=== PATIENT | female | born 1955 | race Caucasian/White ===

== ENCOUNTER → 2019-10-15 | Outpatient (CLI) | payer MEDICARE ==
--- NOTE | 2019-10-15 10:29 | Diagnostic Imaging Report ---
CLINICAL INDICATIONS: Patient with low TSH. COMPARISONS: None. FINDINGS: THYROID NODULES: There is a 1.2 cm x 0.7 cm x 0.7 cm hyperechoic nodule, with a smaller central hypoechoic area within it, which is located in the inferior pole the left thyroid lobe. THYROID GLAND: Besides the thyroid nodule, the thyroid gland parenchyma is heterogeneous. The thyroid gland otherwise has normal size and shape. The right lobe measures 4.8 cm x 2.0 cm x 1.7 cm and the left lobe measures 3.3 cm x 1.8 cm x 1.0 cm in their three dimensions. ISTHMUS: The isthmus is unremarkable and measures 3 mm in thickness. IMPRESSION: 1: There is a 1.2 cm nodule involving the inferior pole of the left thyroid lobe. 2: There is nonspecific heterogeneous appearance of the thyroid gland parenchyma. Dictated by: Dictated on workstation # [id number]
== END ==
LOC: RAD 08:25
PROVIDERS: ATTEND Nurse Practitioner Family
DX: E04.1 Nontoxic single thyroid nodule (principal); R94.6 Abnormal results of thyroid function studies
CPT/HCPCS: 76536

== ENCOUNTER → 2019-11-27 | Outpatient (CLI) | payer MEDICARE ==
--- NOTE | 2019-11-28 14:08 | Diagnostic Imaging Report ---
INDICATION: Left lobe thyroid nodule. COMPARISON: Correlation is made with prior thyroid ultrasound from 10/15/2019. TECHNIQUE: Patient was administered 193 uCi of I-123 orally and a 4-hour and 24-hour thyroid uptake study was performed. In addition, thyroid scan was performed. FINDINGS: 4-hour uptake is 4.8%. 24-hour uptake is 16.9%. Normal 24-hour uptake is 10-30%. Thyroid scan demonstrates fairly homogeneous uptake of activity by both lobes of the thyroid. No definite hot or cold nodules are seen. IMPRESSION: Unremarkable thyroid uptake and scan. Dictated by: Dictated on workstation # [id number]
== END ==
LOC: CARD 11:32
PROVIDERS: ATTEND Otolaryngology Otolaryngology/Facial Plastic Surgery
DX: E04.1 Nontoxic single thyroid nodule (principal)
CPT/HCPCS: 78014

== ENCOUNTER → 2019-12-06 | Outpatient (CLI) | payer MEDICARE | LOC: CARD 12:02 | PROVIDERS: ATTEND Internal Medicine Cardiovascular Disease | DX: E78.2 Mixed hyperlipidemia (principal); I10 Essential (primary) hypertension | CPT/HCPCS: 93306 ==

== ENCOUNTER 2019-12-10 21:00 | Outpatient (CLI) | payer MEDICARE | END 2019-12-11 06:29 | disposition home or self-care (01) | LOC: SLEEP 21:00 | PROVIDERS: ATTEND Internal Medicine Cardiovascular Disease | DX: G47.33 Obstructive sleep apnea (adult) (pediatric) (principal); G47.00 Insomnia, unspecified; I10 Essential (primary) hypertension | CPT/HCPCS: 95810 ==

== ENCOUNTER → 2021-03-18 | Outpatient (CLI) | payer MEDICARE ==
--- NOTE | 2021-03-18 10:55 | Diagnostic Imaging Report ---
INDICATION: Right chest and rib pain PA and lateral views of the chest are obtained. COMPARISON: None FINDINGS: Heart size and pulmonary vascularity are within normal limits, and the lungs are clear, bilaterally. There are surgical clips in the right axilla and breast. IMPRESSION: Unremarkable chest. Dictated by: Dictated on workstation # [id number]
--- NOTE | 2021-03-18 11:51 | Diagnostic Imaging Report ---
INDICATION: Right-sided posterior lower rib pain. TIME OF EXAM: 10:48 AM. FINDINGS: Multiple views of the right-sided ribs were obtained. The ribs appear to be intact. No displaced fracture is seen. The lungs are clear. There is no effusion or pneumothorax. Surgical clips in the right axilla are noted. IMPRESSION: No acute abnormality is detected. Dictated by: Dictated on workstation # [id number]
== END ==
LOC: RAD 10:05
PROVIDERS: ATTEND Nurse Practitioner Family
DX: R07.81 Pleurodynia (principal); R07.9 Chest pain, unspecified
CPT/HCPCS: 71046; 71100

== ENCOUNTER → 2021-07-16 | Outpatient (CLI) | payer MEDICARE ==
--- NOTE | 2021-07-16 13:51 | Diagnostic Imaging Report ---
PROCEDURE: US Thyroid. TECHNIQUE: Multiple real-time grayscale images were obtained of the thyroid in various projections. INDICATION: Left thyroid nodule. COMPARISON: July 11, 2020, and October 15, 2019. FINDINGS: The right lobe of the thyroid gland measures 5.1 x 2.1 x 1.5 cm. It maintains a homogeneous echotexture without discrete nodule. The left lobe of the thyroid gland measures 4.6 x 1.6 x 1.4 cm. There is again seen an ovoid solid nodule which is mildly hyperechoic with central hypoechogenicity. This measures 1.3 x 0.9 x 0.9 cm, which has not significantly changed from the prior exams. No new left thyroid nodule. The isthmus is unremarkable. IMPRESSION: Stable 1.3 cm TI-RADS 2 nodule within the left thyroid lobe. No new thyroid nodule identified. Dictated by: Dictated on workstation # [id number]
== END ==
LOC: RAD FS 12:34
PROVIDERS: ATTEND Otolaryngology Otolaryngology/Facial Plastic Surgery
DX: E04.1 Nontoxic single thyroid nodule (principal)
CPT/HCPCS: 76536

== ENCOUNTER → 2022-09-07 | Outpatient (CLI) | payer MEDICARE ==
--- NOTE | 2022-09-07 17:07 | Diagnostic Imaging Report ---
PROCEDURE: US Thyroid. TECHNIQUE: Multiple real-time grayscale images were obtained of the thyroid in various projections. INDICATION: Thyroid nodule. Comparison with 07/16/2021. FINDINGS: The right lobe measures 4.8 x 1.9 x 1.4 cm. Left lobe measures 3.8 x 1.7 x 1.5 cm. The well-circumscribed oval nodule with anechoic center and isoechoic peripheral soft tissue rim is again noted and has not changed in appearance. This measures approximately 1.3 x 0.8 x 0.8 cm. IMPRESSION: Mixed solid and cystic nodule well-circumscribed without calcification. This is considered mildly suspicious. Continued ultrasound followup recommended. Dictated by: Dictated on workstation # [id number]
== END ==
LOC: RAD FS 10:55
PROVIDERS: ATTEND Otolaryngology Otolaryngology/Facial Plastic Surgery
DX: E04.1 Nontoxic single thyroid nodule (principal)
CPT/HCPCS: 36415; 76536; 84443

== ENCOUNTER → 2023-09-14 | Outpatient (CLI) | payer MEDICARE ==
--- NOTE | 2023-09-14 17:17 | Diagnostic Imaging Report ---
EXAMINATION: US Thyroid. TECHNIQUE: Multiple real-time grayscale images were obtained of the thyroid in various projections. HISTORY: Thyroid nodule COMPARISON: 09/07/2022 FINDINGS: The right lobe of the thyroid measures 4.5 x 1.6 x 1.5 cm. The left lobe of the thyroid measures 3.8 x 1.7 x 1.4 cm. The isthmus measures 0.4 cm. The size and echogenicity of the thyroid is normal. There is a 1.3 x 1.0 x 0.9 cm solid and hyperechoic nodule in the left thyroid. It is not significantly changed from 2019.. IMPRESSION: 1. The left-sided thyroid nodule is not significantly changed from 2019. No further followup needed. Dictated by: Dictated on workstation # [id number]
== END ==
LOC: RAD 10:11
PROVIDERS: ATTEND Otolaryngology Otolaryngology/Facial Plastic Surgery
DX: E04.1 Nontoxic single thyroid nodule (principal)
CPT/HCPCS: 36415; 76536; 84436; 84443